=== PATIENT | male | born 1945 | race Caucasian/White ===

== ENCOUNTER 2016-08-30 09:32 | Outpatient (CLI) | payer MEDICARE, OTHER ==
[2016-08-30 10:34] LABS: #Eosinphils 0.5 thou/uL (0.0-0.7); #Lymphocytes 1.3 thou/uL (1.20-3.40); #Monocytes 0.4 thou/uL (0.11-0.59); #Neutrophils 4.8 thou/uL (1.40-6.50); %Basophils 0.6 % (0.0-1.0); %Eosinophils 6.5 % (0.0-10.0); %Monocytes 5.8 % (0.0-10.0); ALT (SGPT) 43 U/L (0-55); AST (SGOT) 43 U/L (5-34); Alkaline Phosphatase 70 U/L (40-150); Anion Gap 11 mmol/L (10-20); BUN (Urea Nitrogen) 15 mg/dL (8.4-25.7); Bilirubin, Total 0.9 mg/dL (0.2-1.2); Calc. Creatinine Clearance 0 mL/min (70-130); Carbon Dioxide 24 mmol/L (23-31); Chloride 112 mmol/L (98-107); Estimated GFR-MDRD 59; Globulin 1.7 g/dL (2.4-3.5); Hematocrit 42.4 % (42.0-52.0); LDL Cholesterol, Calculated 108 mg/dL; Mean Platelet Volume 7.3 fL (7.4-10.4); Red Blood Cell (RBC) Count 4.61 mill/uL (4.70-6.10)
== END 2016-08-30 09:33 | disposition home or self-care (01) ==
LOC: BURLAB 09:32
PROVIDERS: ATTEND Family Medicine
DX: E78.2 Mixed hyperlipidemia (principal); E03.9 Hypothyroidism, unspecified; D69.6 Thrombocytopenia, unspecified; G20 Parkinson's disease
CPT/HCPCS: 36415; 80050; 80061; 84439

== ENCOUNTER 2016-11-18 21:18 | Emergency (ER) | payer MEDICARE, OTHER ==
--- NOTE | 2016-11-18 21:51 | RAD ---
THREE VIEWS OF THE RIGHT FOOT 11/18/16 COMPARISON: 01/06/15. HISTORY: Right foot trauma with pain. FINDINGS: Three views right foot shows no evidence of acute fracture or dislocation. No significant degenerati ve changes are seen. Mild diffuse soft tissue swelling is present. IMPRESSION: No evidence of acute osseous abnormality. POS: [facility]
== END 2016-11-18 21:56 | disposition home or self-care (01) ==
LOC: BURERS 21:18
DX: S93.601A Unspecified sprain of right foot, initial encounter (principal); I10 Essential (primary) hypertension; G20 Parkinson's disease; E78.00 Pure hypercholesterolemia, unspecified; Z79.899 Other long term (current) drug therapy; V89.2XXA Person injured in unspecified motor-vehicle accident, traffic, initial encounter

== ENCOUNTER 2016-11-27 07:51 | Emergency (ER) | payer MEDICARE, OTHER ==
[2016-11-27 08:34] LABS: #Basophils 0.1 thou/uL (0.0-0.2); #Eosinphils 0.8 thou/uL (0.0-0.7); #Lymphocytes 1.2 thou/uL (1.20-3.40); #Monocytes 0.5 thou/uL (0.11-0.59); #Neutrophils 4.2 thou/uL (1.40-6.50); %Basophils 0.8 % (0.0-1.0); %Eosinophils 11.8 % (0.0-10.0); %Lymphocytes 17.7 % (21.0-51.0); %Monocytes 6.8 % (0.0-10.0); Hemoglobin 12.9 g/dL (14.0-18.0); Mean Corpuscular HGB CONC 34.9 g/dL (32.0-36.0); Mean Corpuscular Hemoglobin 31.5 pg (27.0-31.0); Mean Corpuscular Volume 90.2 fl (80.0-94.0); Mean Platelet Volume 7.5 fL (7.4-10.4); Platelet Count 162 thou/uL (130-400); RBC Distribution Width 13.6 % (11.5-14.5); Red Blood Cell (RBC) Count 4.11 mill/uL (4.70-6.10); White Blood Cell (WBC) Count 6.7 thou/uL (4.8-10.8)
[2016-11-27 08:50] LABS: ALT (SGPT) 18 U/L (8-55); AST (SGOT) 22 U/L (5-34); Albumin 3.9 g/dL (3.4-4.8); Alkaline Phosphatase 85 U/L (40-150); Anion Gap 15 mmol/L (10-20); BUN (Urea Nitrogen) 25 mg/dL (8.4-25.7); Bilirubin, Total 0.8 mg/dL (0.2-1.2); Calc. Creatinine Clearance 0 mL/min (70-130); Calcium 8.5 mg/dL (7.8-10.44); Carbon Dioxide 22 mmol/L (23-31); Chloride 107 mmol/L (98-107); Estimated GFR-MDRD 50; Globulin 2.1 g/dL (2.4-3.5); Glucose 105 mg/dL (80-115); Potassium 3.6 mmol/L (3.5-5.1); Sodium 140 mmol/L (136-145)
[2016-11-27] MEDS ORDERED: Ibuprofen 800 MG TAB ONE (09:16)
--- NOTE | 2016-11-27 09:57 | RAD ---
RIGHT RIBS WITH PA CHEST: Date: 11/27/16 FINDINGS: Fractures of at least the right 4th, 5th, 6th, and possibly 7th ribs anterolaterally are seen. There might be a third rib fracture, but this is less certain. Displacement is minimal. There is no sign of a pneumothorax or large pleural effusion. There is a little bit of basilar atelectasis bilaterall y, however. Heart is normal in size. There is no mediastinal widening or shift. The trachea is midli ne. IMPRESSION: Fractures of at least the 4th through 6th ribs with possible fractures of the 3rd and 7th. POS: HOME
== END 2016-11-27 09:30 | disposition home or self-care (01) ==
LOC: BURERS 07:51
DX: S22.41XA Multiple fractures of ribs, right side, initial encounter for closed fracture (principal); G20 Parkinson's disease; E78.00 Pure hypercholesterolemia, unspecified; E03.9 Hypothyroidism, unspecified; Z79.899 Other long term (current) drug therapy; W01.10XA Fall on same level from slipping, tripping and stumbling with subsequent striking against unspecified object, initial encounter
CPT/HCPCS: 36415; 80053; 85025; 93005; 94760

== ENCOUNTER 2017-03-02 08:31 | Outpatient (CLI) | payer MEDICARE, OTHER ==
--- NOTE | 2017-03-02 21:20 | CT ---
CT OF THE BRAIN WITHOUT CONTRAST 03/02/17 Comparison is made with a 11/10/11 study. In the interim, the patient has had deep brain stimulators placed bilaterally that go through the ba sarah ganglia region. The ventricles are normal in size with no shift. No intracranial bleeding or ex tra-axial hematoma was seen. There is no sign of stroke, edema, or mass. The calvarium showed no fra cture. Some pk holes are seen on the right from prior procedures. The sphenoid sinus and mastoid a ir cells are clear. IMPRESSION: No acute intracranial finding. POS: HOME
== END 2017-03-02 08:32 | disposition home or self-care (01) ==
LOC: BURCT 08:31
PROVIDERS: ATTEND Psychiatry & Neurology Neurology
DX: I62.00 Nontraumatic subdural hemorrhage, unspecified (principal)
CPT/HCPCS: 70450

== ENCOUNTER 2017-04-15 23:51 | Emergency (ER) | payer MEDICARE, OTHER ==
[2017-04-16] MEDS ORDERED: Ibuprofen 200 MG TAB ONE (00:07)
== END 2017-04-15 23:59 | disposition home or self-care (01) ==
LOC: BURERS 23:51
DX: K08.89 Other specified disorders of teeth and supporting structures (principal); E03.9 Hypothyroidism, unspecified; E78.00 Pure hypercholesterolemia, unspecified; G20 Parkinson's disease
CPT/HCPCS: 99282

== ENCOUNTER 2017-07-30 18:38 | Emergency (ER) | payer MEDICARE, OTHER ==
[2017-07-30 19:43] LABS: ALT (SGPT) 15 U/L (8-55); AST (SGOT) 23 U/L (5-34); Albumin 4.3 g/dL (3.4-4.8); Alkaline Phosphatase 61 U/L (40-150); Anion Gap 13 mmol/L (10-20); BUN (Urea Nitrogen) 14 mg/dL (8.4-25.7); Bilirubin, Total 0.7 mg/dL (0.2-1.2); Calc. Creatinine Clearance 0 mL/min (70-130); Calcium 9.4 mg/dL (7.8-10.44); Carbon Dioxide 23 mmol/L (23-31); Chloride 110 mmol/L (98-107); Estimated GFR-MDRD 57; Glucose 96 mg/dL (80-115); Protein, Total 6.3 g/dL (5.8-8.1); Sodium 142 mmol/L (136-145)
[2017-07-30 19:44] LABS: CKMB 2.6 ng/mL (0-6.6); Troponin I Less than 0.010 ng/mL (< 0.028)
[2017-07-30 19:49] LABS: #Basophils 0.1 thou/uL (0.0-0.2); #Eosinphils 0.5 thou/uL (0.0-0.7); #Monocytes 0.5 thou/uL (0.11-0.59); #Neutrophils 4.5 thou/uL (1.40-6.50); %Basophils 0.9 % (0.0-1.0); %Eosinophils 6.7 % (0.0-10.0); %Monocytes 6.6 % (0.0-10.0); %Neutrophils 65.8 % (42.0-75.0); Band 1 % (5-11); Eosinophils 9 % (0-10); Hemoglobin 13.7 g/dL (14.0-18.0); Lymphocytes 19 % (21-51); MDiff Complete? YES; Mean Corpuscular Hemoglobin 29.7 pg (27.0-31.0); Mean Corpuscular Volume 87.5 fl (80.0-94.0); Monocytes 5 % (0-10); Neutrophil 66 % (42-75); Platelet Count 138 thou/uL (130-400); RBC Distribution Width 12.5 % (11.5-14.5); Red Blood Cell (RBC) Count 4.62 mill/uL (4.70-6.10); White Blood Cell (WBC) Count 6.8 thou/uL (4.8-10.8)
--- NOTE | 2017-07-30 23:03 | CT ---
CT BRAIN WITHOUT CONTRAST: Date: 07-30-17 Comparison: 03-02-17 FINDINGS: Ventricles are normal in size for age and atrophy. No intracranial bleeding or extraaxial hematoma wa s seen. There is no evidence of a subdural hematoma. Electrical stimulator leads enter by the high po sterior frontal region bilaterally in connection with the patient's Parkinson's disease. The left sup erior frontal gyrus adjacent to the falx has a small amount of low density in it which may be connect ed with the prior lead placement. Looking back at the 2017 study, the slices are not identical, but i t does appear to be slightly low density at that time as well. Otherwise, there were no finding of ac [place] stroke, mass, or edema. There is a little extra subarachnoid space between the right cerebellar h emisphere and petrous ribs of the temporal bone. This was present before, but is just a little more p rominent today than previously. IMPRESSION: Chronic changes but no definite acute finding. POS: HOME
== END 2017-07-30 20:45 | disposition home or self-care (01) ==
LOC: BURERS 18:38
DX: I10 Essential (primary) hypertension (principal); E03.9 Hypothyroidism, unspecified; G20 Parkinson's disease; E78.00 Pure hypercholesterolemia, unspecified
CPT/HCPCS: 70450; 80053; 82553; 84484; 85025; 93005

== ENCOUNTER 2017-12-04 09:54 | Outpatient (CLI) | payer MEDICARE, OTHER ==
--- NOTE | 2017-12-04 20:09 | RAD ---
CERVICAL SPINE THREE VIEWS: 12/04/2017 FINDINGS: No fracture or dislocation is seen. Disk space narrowing is present at C5-C6, along with a few small posterior osteophytes. The soft tissues are normal in thickness, and the C1 to dens distance is nor mal. IMPRESSION: Disk space narrowing at C5-C6. POS: HOME
== END 2017-12-04 09:55 | disposition home or self-care (01) ==
LOC: BURRAD 09:54
PROVIDERS: ATTEND Family Medicine
DX: M54.2 Cervicalgia (principal); M48.02 Spinal stenosis, cervical region
CPT/HCPCS: 72040

== ENCOUNTER 2017-12-28 08:54 | Outpatient (CLI) | payer MEDICARE, OTHER ==
--- NOTE | 2017-12-28 18:36 | CT ---
CT CERVICAL SPINE 12/28/[address] of the cervical spine was performed for evaluation of radicular pain. Axial slices were acq uired, then coronal and sagittal reconstructions were done. No fracture or dislocation was seen at any cervical level. The C1 to dens distance is normal and the soft tissues are normal in thickness. There is mild disc space narrowing at C5-C6. There is mild loss of the normal cervical lordosis which may be due to muscle spasm. From the levels of C1 through the top of C5, there were no signs of disc herniations, foraminal narro wing, or central canal narrowing. At C5-C6, there is mild to moderate bilateral foraminal narrowing due to minimal osteophytes. The kwaku tral canal is normal in AP diameter. At C6-C7, there is moderate foraminal narrowing on the right and moderate to severe foraminal narrowi ng on the left. No disc protrusions were appreciated. At C7-T1 and T1-T2, there were no acute changes. IMPRESSION: Foraminal narrowing bilaterally at C5-C6 and C6-C7, worst at the C6-C7 level on the left. POS: HOME
== END 2017-12-28 08:55 | disposition home or self-care (01) ==
LOC: BURCT 08:54
PROVIDERS: ATTEND Specialist
DX: M54.12 Radiculopathy, cervical region (principal); M99.81 Other biomechanical lesions of cervical region
CPT/HCPCS: 72125

== ENCOUNTER 2018-01-07 13:29 | Emergency (ER) | payer MEDICARE, OTHER ==
[2018-01-07 13:56] LABS: #Eosinphils 0.3 thou/uL (0.0-0.7); #Lymphocytes 1.7 thou/uL (1.20-3.40); #Monocytes 0.3 thou/uL (0.11-0.59); #Neutrophils 5.3 thou/uL (1.40-6.50); %Basophils 0.4 % (0.0-1.0); %Eosinophils 3.9 % (0.0-10.0); %Lymphocytes 22.3 % (21.0-51.0); %Neutrophils 69.5 % (42.0-75.0); Hemoglobin 13.9 g/dL (14.0-18.0); Mean Corpuscular HGB CONC 35.2 g/dL (32.0-36.0); Mean Corpuscular Hemoglobin 29.6 pg (27.0-31.0); Mean Platelet Volume 7.1 fL (7.4-10.4); Platelet Count 146 thou/uL (130-400); RBC Distribution Width 12.7 % (11.5-14.5); Red Blood Cell (RBC) Count 4.72 mill/uL (4.70-6.10); White Blood Cell (WBC) Count 7.6 thou/uL (4.8-10.8)
[2018-01-07 14:11] LABS: ALT (SGPT) 12 U/L (8-55); AST (SGOT) 17 U/L (5-34); Albumin 4.1 g/dL (3.4-4.8); Alkaline Phosphatase 57 U/L (40-150); Anion Gap 16 mmol/L (10-20); BUN (Urea Nitrogen) 20 mg/dL (8.4-25.7); Bilirubin, Total 1.2 mg/dL (0.2-1.2); CK (CPK) 77 U/L (30-200); Calc. Creatinine Clearance 0 mL/min (70-130); Calcium 9.1 mg/dL (7.8-10.44); Carbon Dioxide 20 mmol/L (23-31); Chloride 111 mmol/L (98-107); Estimated GFR-MDRD 61; Globulin 2.1 g/dL (2.4-3.5); Glucose 137 mg/dL (83-110); Potassium 3.7 mmol/L (3.5-5.1); Protein, Total 6.2 g/dL (5.8-8.1); Sodium 143 mmol/L (136-145)
[2018-01-07 14:14] LABS: CKMB 1.8 ng/mL (0-6.6); Troponin I Less than 0.010 ng/mL (< 0.028)
== END 2018-01-07 15:37 | disposition home or self-care (01) ==
LOC: BURERS 13:29
DX: E86.0 Dehydration (principal); E03.9 Hypothyroidism, unspecified; E78.00 Pure hypercholesterolemia, unspecified; Z79.899 Other long term (current) drug therapy
CPT/HCPCS: 80053; 82553; 84484; 85025; 93005

== ENCOUNTER 2018-06-04 16:07 | Outpatient (CLI) | payer MEDICARE, OTHER ==
[2018-06-04 17:17] LABS: INR-International Normal Ratio 0.9; PTT 24.4 SEC (22.9-36.1)
--- NOTE | 2018-06-04 21:33 | CT ---
CT BRAIN WITHOUT CONTRAST: 06/04/2018 COMPARISON: Study from [facility] from 03/15/2018. FINDINGS: There has been no adverse interval change. The ventricles are normal in size for age and atrophy. T here are atrophic changes throughout. No intracranial bleeding or extraaxial hematoma is seen. Ther e is no sign of acute stroke, mass, or edema. Bilateral thalamic stimulator leads are noted. IMPRESSION: Stable exam, showing no acute findings. POS: HOME
--- NOTE | 2018-06-04 21:34 | RAD ---
CHEST TWO VIEWS: 06/04/2018 COMPARISON: Portable film from [facility] from 02/06/2018. FINDINGS: The heart is normal in size. No infiltrates, effusions, or vascular congestion is seen. The mediast inum appears normal. An electronic stimulator lies over the left chest, as usual. IMPRESSION: No acute thoracic findings. POS: HOME
[2018-06-04 21:47] LABS: Bilirubin Negative (Negative); Blood, Urine Negative (Negative); Clarity CLEAR (Clear); Glucose, Urine (Dipstick) Negative (Negative); Leukocyte Negative (Negative); Nitrite Negative (Negative); Protein, Urine (Dipstick) Negative (Neg-Trace); pH, Urine 6.5 (5.0-9.0)
[2018-06-04 21:53] LABS: Bacteria/HPF None Seen HPF (None Seen); Hyaline Casts/LPF 0-3 HYALINE CAST LPF (0-3 Hyaline); RBC/HPF None Seen HPF (0-3); Squamous Epithelial None Seen HPF (0-3); WBC/HPF None Seen HPF (0-3)
[2018-06-04 22:03] LABS: Anion Gap 12 mmol/L (10-20); BUN (Urea Nitrogen) 16 mg/dL (8.4-25.7); Calc. Creatinine Clearance 0 mL/min (70-130); Calcium 9.2 mg/dL (7.8-10.44); Carbon Dioxide 25 mmol/L (23-31); Chloride 107 mmol/L (98-107); Estimated GFR-MDRD 54; Glucose 90 mg/dL (83-110); Potassium 3.6 mmol/L (3.5-5.1); Sodium 140 mmol/L (136-145)
[2018-06-04 22:21] LABS: Hemoglobin 14.8 g/dL (14.0-18.0); Mean Corpuscular HGB CONC 32.9 g/dL (32.0-36.0); Mean Corpuscular Hemoglobin 31.2 pg (27.0-31.0); Mean Corpuscular Volume 94.9 fL (78.0-98.0); Platelet Count 144 thou/uL (130-400); RBC Distribution Width 13.5 % (11.5-14.5); Red Blood Cell (RBC) Count 4.74 mill/uL (4.70-6.10); White Blood Cell (WBC) Count 8.4 thou/uL (4.8-10.8)
== END 2018-06-04 16:08 | disposition home or self-care (01) ==
LOC: BUREKG 16:07
PROVIDERS: ATTEND Psychiatry & Neurology Neurology
DX: Z01.810 Encounter for preprocedural cardiovascular examination (principal); R47.9 Unspecified speech disturbances; D69.6 Thrombocytopenia, unspecified; Z86.79 Personal history of other diseases of the circulatory system
CPT/HCPCS: 36415; 70450; 71046; 80048; 81001; 85027; 85610; 85730; 93005; 93010

== ENCOUNTER 2018-08-06 23:28 | Emergency (ER) | payer MEDICARE, OTHER | END 2018-08-07 00:20 | disposition home or self-care (01) | LOC: BURERS 23:28 | DX: I10 Essential (primary) hypertension (principal); E03.9 Hypothyroidism, unspecified; E78.5 Hyperlipidemia, unspecified; G20 Parkinson's disease; Z87.891 Personal history of nicotine dependence; Z79.899 Other long term (current) drug therapy | CPT/HCPCS: 93005 ==

== ENCOUNTER 2018-09-05 20:24 | Emergency (ER) | payer MEDICARE, OTHER ==
[2018-09-05] MEDS ORDERED: Fluorescein Opthalmic Strip ONE (20:34)
[2018-09-05] MEDS ORDERED: Tobramycin Sulfate 0.3% Ophth Susp 5 ml Bottle ONE (20:46)
== END 2018-09-05 21:00 | disposition home or self-care (01) ==
LOC: BURERS 20:24
DX: H10.9 Unspecified conjunctivitis (principal); E78.5 Hyperlipidemia, unspecified; I10 Essential (primary) hypertension; G20 Parkinson's disease; E03.9 Hypothyroidism, unspecified; Z87.891 Personal history of nicotine dependence; Z79.899 Other long term (current) drug therapy
CPT/HCPCS: 99283

== ENCOUNTER 2018-09-19 13:40 | Emergency (ER) | payer MEDICARE, OTHER ==
--- NOTE | 2018-09-19 15:03 | CT ---
CT OF THE BRAIN WITHOUT CONTRAST: Date: 09/19/18 Comparison is made with the 06/04/18 study. FINDINGS: The ventricles are normal in size with no shift. No intracranial bleeding or extra-axial hematoma see n. Neural stimulator leads are seen in place, ending in the vicinity of the substantia nigra of the m idbrain bilaterally. There has been no adverse change since the prior exam. The calvarium appears int act and the sphenoid sinus and mastoid air cells are clear. IMPRESSION: No acute intracranial finding. POS: HOME
== END 2018-09-19 14:35 | disposition home or self-care (01) ==
LOC: BURERS 13:40
DX: S00.03XA Contusion of scalp, initial encounter (principal); E03.9 Hypothyroidism, unspecified; E78.5 Hyperlipidemia, unspecified; I10 Essential (primary) hypertension; G20 Parkinson's disease; Z87.891 Personal history of nicotine dependence; Z79.899 Other long term (current) drug therapy; W19.XXXA Unspecified fall, initial encounter
CPT/HCPCS: 70450

== ENCOUNTER 2018-10-10 00:27 | Emergency (ER) | payer MEDICARE, OTHER ==
[2018-10-10] MEDS ORDERED: Fentanyl 100 MCG/2 ML VIAL ONE ×2 (01:45→02:15)
[2018-10-10] MEDS ORDERED: Ketorolac Tromethamine 30 MG/ML VIAL ONE (01:46)
[2018-10-10 02:26] LABS: #Basophils 0.1 thou/uL (0.0-0.2); #Eosinphils 0.3 thou/uL (0.0-0.7); #Lymphocytes 1.7 thou/uL (1.20-3.40); #Monocytes 0.6 thou/uL (0.11-0.59); #Neutrophils 7.5 thou/uL (1.40-6.50); %Basophils 0.7 % (0.0-1.0); %Eosinophils 3.1 % (0.0-10.0); %Lymphocytes 17.1 % (21.0-51.0); %Monocytes 5.7 % (0.0-10.0); %Neutrophils 73.5 % (42.0-75.0); Hemoglobin 13.4 g/dL (14.0-18.0); Mean Corpuscular HGB CONC 32.7 g/dL (32.0-36.0); Mean Corpuscular Hemoglobin 30.1 pg (27.0-31.0); Mean Corpuscular Volume 92.2 fL (78.0-98.0); Platelet Count 186 thou/uL (130-400); RBC Distribution Width 13.7 % (11.5-14.5); Red Blood Cell (RBC) Count 4.46 mill/uL (4.70-6.10); White Blood Cell (WBC) Count 10.2 thou/uL (4.8-10.8)
[2018-10-10 02:39] LABS: ALT (SGPT) 9 U/L (8-55); AST (SGOT) 18 U/L (5-34); Albumin 4.1 g/dL (3.4-4.8); Alkaline Phosphatase 66 U/L (40-150); Anion Gap 15 mmol/L (10-20); BUN (Urea Nitrogen) 17 mg/dL (8.4-25.7); Calc. Creatinine Clearance 0 mL/min (70-130); Calcium 9.2 mg/dL (7.8-10.44); Carbon Dioxide 22 mmol/L (23-31); Chloride 105 mmol/L (98-107); Estimated GFR-MDRD 54; Globulin 2.2 g/dL (2.4-3.5); Glucose 120 mg/dL (83-110); Potassium 3.4 mmol/L (3.5-5.1); Protein, Total 6.3 g/dL (5.8-8.1); Sodium 139 mmol/L (136-145)
[2018-10-10 02:41] LABS: Bilirubin, Total 0.9 mg/dL (0.2-1.2)
[2018-10-10 02:44] LABS: PTT 23.8 SEC (22.9-36.1)
--- NOTE | 2018-10-10 08:14 | RAD ---
RIGHT SHOULDER: Date: 10-10-18 FINDINGS: A single view shows an anterior inferior dislocation of the humeral head. A defect is seen in the sup erior lateral portion of the head that is basically a Hill-Sachs lesion, an impacted fracture of the superior lateral aspect. The AC joint is normal in width. The visible adjacent ribs showed no acute f racture. IMPRESSION: Anterior inferior dislocation of the shoulder. POS: HOME
--- NOTE | 2018-10-10 08:27 | CT ---
PRELIMINARY REPORT/[facility]/EMERGENTY AFTER-HOURS PROCEDURE CT Right Upper Extremity Without Contrast, Shoulder EXAM DATE/TIME: 10/10/2018 1:22 AM CLINICAL HISTORY: 72 years old, male; Injury or trauma; Initial encounter; Blunt trauma (contusions or hematomas; Injur y date: 10/10/18; Injury details: Fall on RT side abnormal plain film; Patient HX: Parkinson's diseas e hard to scan TECHNIQUE: Imaging protocol: CT of the Right upper extremity without contrast was performed. Exam focused on the shoulder. Radiation optimization: All CT scans at this facility use at least one of these dose optimization jc hniques: automated exposure control; mA and/or kV adjustment per patient size (includes targeted exam s where dose is matched to clinical indication); or iterative reconstruction. COMPARISON: No relevant prior studies available. FINDINGS: Bones/joints: There is anterior and inferior dislocation of right humerus. There is a comminuted frac ture of the superior aspect of the humeral head due to impaction of the inferior / anterior rim of th e glenoid. Deformity of several right ribs is likely due to healed fractures. Soft tissues: There is mild infiltration of soft tissues adjacent to the right humerus. There may be right lipohemarthrosis. IMPRESSION: Right shoulder dislocation with fracture of the right humeral head consistent with Hill-Sachs lesion. Thank you for allowing us to participate in the care of your patient. Dictated and Authenticated by: Luis Craig MD 10/10/2018 1:58 AM Central Time ([place] & [place]) FINAL REPORT: CT OF THE RIGHT SHOULDER: Date: 10-10-18 FINDINGS: An anterior inferior dislocation of the humeral head is present. There is a fracture of the cortex of the superior lateral portion of the humeral head, essentially a Hill-Sachs lesion. As best as I can tell, the glenoid rim is intact, though on one slice I do see a very tiny deb of bone just lateral to the glenoid fossa. There are a few mild deformities of adjacent ribs that do not appear recent but could relate to old trauma. The lungs are difficult to evaluate due to motion artifact. Clavicle is not seen completely but the visible portions seemed intact. IMPRESSION: 1. Anterior inferior dislocation of humeral head with an impacted fracture of the superior articular surface of the head (Hill-Sachs lesion). Report in agreement with preliminary reading by SUMAN. POS: HOME
== END 2018-10-10 02:15 | disposition short-term general hospital (02) ==
LOC: BURERS 00:27
DX: S43.034A Inferior dislocation of right humerus, initial encounter (principal); E03.9 Hypothyroidism, unspecified; E78.5 Hyperlipidemia, unspecified; I10 Essential (primary) hypertension; G20 Parkinson's disease; F17.220 Nicotine dependence, chewing tobacco, uncomplicated; Z79.899 Other long term (current) drug therapy; W18.30XA Fall on same level, unspecified, initial encounter
CPT/HCPCS: 80053; 85025; 85610; 85730; 96374; 96375; J1885; J3010

== ENCOUNTER 2018-11-27 16:33 | Outpatient (CLI) | payer MEDICARE, OTHER ==
--- NOTE | 2018-11-27 17:58 | RAD ---
CHEST TWO VIEWS: 11/27/10 Comparison is made with a 06/04/18 study. The heart is normal in size. There is no vascular congestion, edema, or pleural effusion. On the PA f ilm, the lungs were clear. On the lateral view, there is a little bit of retrocardiac streaking. An e bandar infiltrate or atelectasis here is possible. Incidentally noted was an electronic stimulator over lying the left chest. IMPRESSION: Retrocardiac streaking. Code T POS: HOME
== END 2018-11-27 16:34 | disposition home or self-care (01) ==
LOC: BURRAD 16:33
PROVIDERS: ATTEND Internal Medicine Pulmonary Disease
DX: R06.2 Wheezing (principal); R05 Cough
CPT/HCPCS: 71046

== ENCOUNTER 2019-01-24 14:53 | Outpatient (CLI) | payer MEDICARE, OTHER ==
--- NOTE | 2019-01-25 07:31 | ULT ---
SOFT TISSUE ULTRASOUND OF THE NECK: 01/24/2019 TECHNIQUE: Some limited scanning of the neck was done over a palpable area of interest. FINDINGS: None of the images provided show any evidence of mass, enlarged nodes, or other pathologic change. I f concern remains, a CT might be useful but, generally speaking, ultrasound urbano how if true patholo gy is present. IMPRESSION: No evidence of pathological change. POS: HOME
== END 2019-01-24 14:54 | disposition home or self-care (01) ==
LOC: BURULT 14:53
PROVIDERS: ATTEND Family Medicine
DX: R22.1 Localized swelling, mass and lump, neck (principal)
CPT/HCPCS: 76999

== ENCOUNTER 2019-11-15 14:12 | Outpatient (CLI) | payer MEDICARE, OTHER ==
--- NOTE | 2019-11-15 18:40 | RAD ---
LEFT ELBOW FOUR VIEWs: 11/15/19 No major fracture or joint effusion was seen. There is some minor bony spurring but not as much as in the right elbow. There may have been an old injury to the medial epicondyle. IMPRESSION: Minor findings but no acute changes. POS: HOME
--- NOTE | 2019-11-15 19:49 | RAD ---
RIGHT ELBOW FOUR VIEWS: 11/15/19 No fracture, recent or remote, was appreciated. There is no large joint effusion. Some bony spurring is seen in the joint. There are some cystic changes in the distal humerus, particularly laterally, t hat are obviously longstanding. Their current significance is unknown. IMPRESSION: 1. Minor arthritic changes. 2. Small cystic changes in the distal humerus of uncertain significance. Probably longstanding. POS: HOME
== END 2019-11-15 14:13 | disposition home or self-care (01) ==
LOC: BURRAD 14:12
PROVIDERS: ATTEND Family Medicine
DX: M25.521 Pain in right elbow (principal); M25.522 Pain in left elbow; M19.021 Primary osteoarthritis, right elbow; M25.821 Other specified joint disorders, right elbow

== ENCOUNTER 2020-03-05 20:00 | Emergency (ER) | payer MEDICARE, OTHER ==
[2020-03-05 20:32] LABS: Bilirubin Negative (Negative); Blood, Urine Trace (Negative); Clarity Clear (Clear); Glucose, Urine (Dipstick) Negative (Negative); Ketone, Urine Negative (Negative); Leukocyte Negative (Negative); Nitrite Negative (Negative); Protein, Urine (Dipstick) Negative (Neg-Trace)
[2020-03-05 20:37] LABS: Bacteria/HPF None Seen HPF (None Seen); RBC/HPF 0-3 HPF (0-3); Squamous Epithelial None Seen HPF (0-3); WBC/HPF None Seen HPF (0-3)
[2020-03-05] MEDS ORDERED: predniSONE 20 MG TAB ONE ×2 (21:01)
--- NOTE | 2020-03-06 07:17 | RAD ---
LEFT HIP 2 VIEWS: Date: 03/05/2020 No fracture, dislocation, or joint space narrowing seen. The adjacent pubic ring appears intact. IMPRESSION: No acute findings. POS: HOME
== END 2020-03-05 21:20 | disposition home or self-care (01) ==
LOC: BURERS 20:00
DX: M54.5 Low back pain (principal); M79.10 Myalgia, unspecified site; E03.9 Hypothyroidism, unspecified; E78.5 Hyperlipidemia, unspecified; E78.00 Pure hypercholesterolemia, unspecified; I10 Essential (primary) hypertension; G20 Parkinson's disease; Z87.891 Personal history of nicotine dependence; Z79.1 Long term (current) use of non-steroidal anti-inflammatories (NSAID); Z79.899 Other long term (current) drug therapy; V89.2XXA Person injured in unspecified motor-vehicle accident, traffic, initial encounter
CPT/HCPCS: 81003; 81015; J7512

== ENCOUNTER 2020-05-28 13:23 | Outpatient (CLI) | payer MEDICARE, OTHER ==
[2020-05-28 13:47] LABS: PTT 36.5 sec (22.9-36.1); Prothrombin Time 13.5 sec (12.0-14.7)
[2020-05-28 17:56] LABS: Bacteria/HPF None Seen HPF (None Seen); Bilirubin Negative (Negative); Blood, Urine Negative (Negative); Calcium Oxalate Crystals 1+ HPF (None Seen); Clarity Clear (Clear); Glucose, Urine (Dipstick) Normal (Negative); Ketone, Urine Negative (Negative); Leukocyte Negative Leu/uL (Negative); Nitrite Negative (Negative); Protein, Urine (Dipstick) Negative (Neg-Trace); RBC/HPF 0-3 HPF (0-3); Specific Gravity, Urine 1.013 (1.002-1.036); Squamous Epithelial None Seen HPF (0-3); Urobilinogen Normal mg/dL (Less than 2); WBC/HPF 0-3 HPF (0-3)
--- NOTE | 2020-05-28 20:07 | RAD ---
RIGHT ELBOW FOUR VIEWS: 05/28/20 No fracture or joint effusion was seen. There is some minimal bony spurring around the coronoid proce ss. IMPRESSION: No acute finding. POS: HOME
== END 2020-05-28 13:24 | disposition home or self-care (01) ==
LOC: BURRAD 13:23
PROVIDERS: ATTEND Family Medicine
DX: M25.521 Pain in right elbow (principal); D68.9 Coagulation defect, unspecified
CPT/HCPCS: 36415; 81001; 85610; 85730

== ENCOUNTER 2021-09-14 13:48 | Emergency (ER) | payer MEDICARE, OTHER ==
[2021-09-14] MEDS ORDERED: Lidocaine 4% Cream 5 GM TUBE w/ Tegaderm ONE (14:02)
[2021-09-14] MEDS ORDERED: Boostrix 0.5 ML (Tdap) VIAL ONE (14:32)
== END 2021-09-14 14:50 | disposition home or self-care (01) ==
LOC: BURERS 13:48
DX: S01.01XA Laceration without foreign body of scalp, initial encounter (principal); E03.9 Hypothyroidism, unspecified; E78.5 Hyperlipidemia, unspecified; E78.00 Pure hypercholesterolemia, unspecified; I10 Essential (primary) hypertension; W18.30XA Fall on same level, unspecified, initial encounter; Z23 Encounter for immunization; Z87.891 Personal history of nicotine dependence; Z79.899 Other long term (current) drug therapy
CPT/HCPCS: 12001; 90471; 90715

== ENCOUNTER 2021-10-19 10:24 | Emergency (ER) | payer MEDICARE, OTHER ==
[2021-10-19 12:15] LABS: #Eosinphils 0.2 thou/uL (0.0-0.7); #Lymphocytes 1.8 thou/uL (1.20-3.40); #Monocytes 0.7 thou/uL (0.11-0.59); #Neutrophils 14.5 thou/uL (1.40-6.50); %Basophils 0.3 % (0.0-1.0); %Lymphocytes 10.2 % (21.0-51.0); %Monocytes 4.1 % (0.0-10.0); %Neutrophils 84.4 % (42.0-75.0); Elliptocytes SLIGHT = 2-5 cells (100X) (0-1/hpf); MDiff Complete? YES; Ovalocytes SLIGHT = 2-5 cells (100X) (0-1/hpf); Platelet Morphology Comment Appears Adequate
[2021-10-19 12:19] LABS: ALT (SGPT) 8 U/L (8-55); AST (SGOT) 11 U/L (5-34); Albumin 3.8 g/dL (3.4-4.8); Alkaline Phosphatase 92 U/L (40-110); Anion Gap 14 mmol/L (10-20); Anisocytosis MODERATE=16-30 cells (100X) (0-5/hpf); BUN (Urea Nitrogen) 23 mg/dL (8.4-25.7); Bilirubin, Total 0.8 mg/dL (0.2-1.2); Calc. Creatinine Clearance 0 mL/min (70-130); Calcium 8.8 mg/dL (7.8-10.44); Carbon Dioxide 25 mmol/L (23-31); Chloride 108 mmol/L (98-107); Globulin 2.3 g/dL (2.4-3.5); Glucose 106 mg/dL (83-110); Hemoglobin 10.7 g/dL (14.0-18.0); Lipase 14 U/L (8-78); Mean Corpuscular HGB CONC 31.8 g/dL (32.0-36.0); Mean Corpuscular Hemoglobin 25.7 pg (27.0-31.0); Mean Corpuscular Volume 80.8 fL (78.0-98.0); Mean Platelet Volume 5.6 fL (7.4-10.4); Platelet Count 232 thou/uL (130-400); Potassium 4.7 mmol/L (3.5-5.1); Protein, Total 6.1 g/dL (5.8-8.1); RBC Distribution Width 18.9 % (11.5-14.5); Red Blood Cell (RBC) Count 4.15 mill/uL (4.70-6.10); Sodium 142 mmol/L (136-145); White Blood Cell (WBC) Count 17.2 thou/uL (4.8-10.8)
[2021-10-19 13:26] LABS: Bilirubin Negative (Negative); Blood, Urine Negative (Negative); Clarity Clear (Clear); Glucose, Urine (Dipstick) Negative (Negative); Ketone, Urine Negative (Negative); Leukocyte Negative (Negative); Nitrite Negative (Negative); Protein, Urine (Dipstick) Negative (Neg-Trace)
== END 2021-10-19 14:45 | disposition home or self-care (01) ==
LOC: BURERS 10:24
DX: K56.41 Fecal impaction (principal); R33.9 Retention of urine, unspecified; E03.9 Hypothyroidism, unspecified; E78.5 Hyperlipidemia, unspecified; E78.00 Pure hypercholesterolemia, unspecified; I10 Essential (primary) hypertension; Z79.890 Hormone replacement therapy; Z79.899 Other long term (current) drug therapy
CPT/HCPCS: 36415; 51702; 74176; 80053; 81003; 83605; 83690; 85025